=== PATIENT | female | born 1945 | race Caucasian/White ===

== ENCOUNTER → 2019-05-25 11:24 | Outpatient (CLI) | payer MEDICARE, SELFPAY ==
--- NOTE | 2019-05-25 11:29 | DI.MRI.S_ITS ---
PROCEDURE: MR LUMBAR SPINE WO CON INDICATIONS: Progressive low back pain scoliosis TECHNIQUE: Noncontrast sagittal T1 spin echo and T2 fast echo, sagittal STIR, axial T1 and T2 fast spin echo through the lumbar spine. In cases with scoliosis, additional coronal T2 fast spin echo may be performed. COMPARISON: [facility], CR, XR LUMBAR SPINE WITH FLEXION EXTENSION 5 VIEWS, 03/10/2019, 13:06. FINDINGS: Image quality: Excellent. Alignment and Curvature: There is grade I L5-S1 anterolisthesis secondary to facet hypertrophy. There is approximately 36? of convex left of lumbar spine scoliosis. Bone Marrow: Marrow is of normal overall signal. Loss of height noted in the T12 and L1 vertebral bodies compatible with compression deformities are stable compared to prior plain film radiographs. There is increased T2 signal in the marrow space of the L1 vertebral body suggesting a compression fracture is subacute. The T12 compression deformity has chronic appearance. Reactive endplate changes noted adjacent to the L1-L2, L2-L3, L3-L4, L4-L5 and L5-S1 discs. No acute vertebral body compression fractures. Spinal Cord: Conus medullaris terminates at the T12-L1 disc level. Visualized cord demonstrates normal signal and size. Paraspinous Soft Tissues: No paravertebral masses. L1-L2: Loss of disc signal. Mild, diffuse disc bulge. Mild bilateral facet hypertrophy. No central stenosis. Mild bilateral neural foraminal narrowing. No neural compression. L2-L3: Loss of disc signal. Mild, diffuse disc bulge. Mild bilateral facet hypertrophy. Mild ligamentum flavum hypertrophy. Mild to moderate narrowing of the central canal. Mild to moderate bilateral neural foraminal narrowing. No neural compression. L3-L4: Loss of disc signal and height. Mild, diffuse disc bulge. Moderate bilateral facet hypertrophy. Moderate narrowing of the central canal. Moderate right and [id number] left neural foraminal narrowing. No neural compression. L4-L5: Loss of disc signal. Mild, diffuse disc bulge. Moderate bilateral facet hypertrophy. Moderate narrowing of the central canal. Mild right and [id number]-[id number]-wmfyzu left neural foraminal narrowing. No neural compression. L5-S1: Loss of disc signal and height. Mild, diffuse disc bulge with severe bilateral facet hypertrophy. Moderate narrowing of the central canal. Moderate to severe bilateral neural foraminal narrowing. No neural compression. Fissures are noted in the posterior annulus. IMPRESSION: 1. Convex left of lumbar spine scoliosis. 2. Grade I L5-S1 degenerative spondylolisthesis. 3. Multilevel degenerative disc disease. 4. Multilevel facet arthropathy. 5. Moderate L3-L4, L4-L5 and L5-S1 central canal narrowing. Mild to moderate L2-L3 central canal narrowing. 6. Moderate to severe bilateral L5-S1 neural foraminal narrowing. Mild right and jcjjcdlw-[id number] left L4-L5 neural foraminal narrowing. Moderate right and mild to moderate left L3-L4 neural foraminal narrowing. Mild to moderate bilateral L1-L2 neural foraminal narrowing. Mild bilateral L1-L2 neural foraminal narrowing. 7. No neural compression. 8. L5-S1 disc annulus fissures. Dictated by: Shirley Pantoja MD, PhD on 05/25/2019 at 16:39 Approved by: Shirley Pantoja MD, PhD on 05/25/2019 at 16:51
== END ==
PROVIDERS: PCP Family Medicine; Referring Provider Physical Medicine & Rehabilitation; Visit Provider Physical Medicine & Rehabilitation
DX: M54.5 Low back pain (principal); M47.817 Spondylosis without myelopathy or radiculopathy, lumbosacral region; M47.816 Spondylosis without myelopathy or radiculopathy, lumbar region; M43.17 Spondylolisthesis, lumbosacral region; M51.36 Other intervertebral disc degeneration, lumbar region; M51.37 Other intervertebral disc degeneration, lumbosacral region; M48.061 Spinal stenosis, lumbar region without neurogenic claudication; M48.07 Spinal stenosis, lumbosacral region; M41.86 Other forms of scoliosis, lumbar region
CPT/HCPCS: 72148

== ENCOUNTER 2019-06-02 09:40 | Outpatient (CLI) | payer MEDICARE, SELFPAY ==
[2019-06-02] VITALS (9 sets, daily range): BP systolic 88–125; BP diastolic 47–74; PULSE 70–82; RESP 14–16; O2SAT 95–99
--- NOTE | 2019-06-02 09:42 | DI.RAD.S_ITS ---
PROCEDURE: PAIN L/SI FACET INJ/BLK 1STL INDICATIONS: Progressive low back pain scoliosis FINDINGS: Fluoroscopic spot filming was performed to verify placement of spinal needles at the L3-L4, L4-L5, L5-S1 level(s), as labeled on the films. Appropriate location(s) of the needle tip(s) was confirmed by injection of iodinated contrast. Dictated by: Rowdy Vela M.D. on 06/02/2019 at 12:16 Approved by: Rowdy Vela M.D. on 06/02/2019 at 13:12
[2019-06-02] MEDS: MIDAZOLAM 5 MG/5 ML VIAL IV (10:17)
[2019-06-02] MEDS: fentaNYL 100 MCG/2 ML INJ 50 MCG IV (10:22)
[2019-06-02] MEDS: IOPAMIDOL 15 ML VIAL 3 ML INJ (10:26)
[2019-06-02] MEDS: BETAMETHASONE 30 MG/5 ML MDV 12 MG INJ (10:26)
[2019-06-02] MEDS: BUPIVACAINE 0.5% (PF) VIAL 2 ML INJ (10:27)
--- NOTE | 2019-06-02 10:28 | PC.NURSE ---
DR VALERIO AWARE OF DECREASED BP AFTER ADMIN OF FENTANYL. ASSISTING PT OFF TABLE AND TRANSPORTING TO POST PROC AREA IN STABLE CONDITION. PASSING CARE OF PT OFF TO DESHAUN Rosenberg RN.
--- NOTE | 2019-06-02 10:37 | P.PCN_ITS ---
Procedures Date/Time Date of procedure: 06/02/19 Time of procedure: 10:37 General Procedure description: PREOP DIAGNOSIS 1. FACET ARTHROPATHY, 2. AXIAL LBP, 3. MULTILEVEL DDD, POST OP DIAGNOSIS 1. FACET ARTHROPATHY, 2. AXIAL LBP, 3. MULTILEVEL DDD, PROCEDURES 1. FLUORSCOPICALLY GUIDED CONTRAST CONTROLLED FACET JOINT INJECTIONS LEFT L4/5, L5/S1 SURGEON: Kiran Alan, DO INDICATIONS Eliane is referred by Dr. Ott for treatment of Axial LBP FINDINGS Multilevel Facet Arthropathy with Clinically significant axial LBP DESCRIPTION OF PROCEDURE Fluoroscopically guided, contrast-controlled left L3/4, L4/5, L5/S1 facet joint injections. Following review of allergy and review of potential side effects and complications, including, but not necessarily limited to, infection, allergic reaction, local tissue breakdown, stroke, temporary or permanent nerve injury, paralysis, and possible , the patient indicated that the patient understood and agreed to proceed. An informed consent document was signed by the patient, witnessed by a nurse, and placed in the patient's chart. Additionally, other treatment options including medications, modalities, and physical therapy were reviewed with the patient. After review of previous anaesthesic history and IV conscious sedation the patient was deemed safe to proceed with todays procedure with IV conscious sedation as ASA class II designation. Safety time-out was performed to confirm patient ID, procedure to be performed and site of procedure. IV sedation was accomplished with a combination of 2mg of Versed and 50mcg of Fentanylwas administered by the RN after DO order, titrated to patient comfort during the course of the procedure while the patient remained responsive to all verbal commands. In the prone position, following sterile prep and drape of the lumbar region, the posterior aspect of the left L3/4, L4/5, L5/S1 facet joints were identified fluoroscopically. The skin was anesthetized via a 25-gauge 1.5-inch needle with 1% lidocaine solution into the corresponding facet joints. At this point, a 22- gauge 3.5-inch spinal needle was atraumatically introduced and advanced under fluoroscopic guidance into the corresponding facet joints. Following negative aspiration, injections of approximately 0.2-cc of Isovue 200 confirmed interarticular placement without vascular uptake. Radiological data, including multiple fluoroscopic views of the lumbosacral spine, reveal a spinal needle at the left L3/4, L4/5, L5/S1 facet joints. Subsequent views show flow of contrast material both superiorly and inferiorly within the joint space without vascular or intrathecal uptake. At this point, a total of 0.5 cc including a mixture of 0.25cc Marcaine and 0.25cc betamethasone was injected without complication into each of the corresponding facet joints. The procedure tolerated the procedure well without signs or symptoms of complications prior to transfer to the recovery area continued monitoring without incident. The patient was then transferred to the recovery area where they were observed for an appropriate period of time after the injection. The patient reported a VAS score of 7 prior to the procedure and a post-procedure VAS of 0. Total Fluoroscopy Time: 7seconds Total Conscious Sedation Time: 24min POST OP INSTRUCTIONS The patient was provided a Pain Log to continue to record their response to the target-specific procedure prior to follow-up visit with their referring physician. Additionally, specific post-injection care instructions and a contact number to our office were provided if concerns arise regarding possible complications associated with the procedure are suspected. Kiran Alan DO Complications: none
--- NOTE | 2019-06-02 11:14 | PC.NURSE ---
patient returned from procedure in w/c accompanied by kristina Judge assist to chair, pt. denies pain, given water and cookies. patient confused about meds and forgetful
== END 2019-06-02 11:05 | disposition home or self-care (01) ==
PROVIDERS: PCP Family Medicine; Referring Provider Physical Medicine & Rehabilitation; Visit Provider Physical Medicine & Rehabilitation
DX: M47.817 Spondylosis without myelopathy or radiculopathy, lumbosacral region (principal); M47.816 Spondylosis without myelopathy or radiculopathy, lumbar region; M54.5 Low back pain; M51.36 Other intervertebral disc degeneration, lumbar region; M51.37 Other intervertebral disc degeneration, lumbosacral region
CPT/HCPCS: 64493; 64494; 64495; 99152; J0702; J2250; J3010

== ENCOUNTER → 2019-09-05 11:42 | Outpatient (CLI) | payer MEDICARE, SELFPAY ==
[2019-09-08 16:14] LABS: COVID19 Sendout Not Detected (Not Detected)
== END ==
PROVIDERS: PCP Family Medicine; Visit Provider Registered Nurse
DX: Z01.812 Encounter for preprocedural laboratory examination (principal)
CPT/HCPCS: 87635

== ENCOUNTER 2019-09-08 14:28 | Outpatient (CLI) | payer MEDICARE, SELFPAY ==
[2019-09-08] VITALS (9 sets, daily range): BP systolic 102–157; BP diastolic 52–104; PULSE 62–80; RESP 15–16; TEMP 36.6; O2SAT 97–100
--- NOTE | 2019-09-08 14:29 | DI.RAD.S_ITS ---
PROCEDURE: PAIN L/SI FACET INJ/BLK 1STL INDICATIONS: SPONDYLOSIS FINDINGS: Fluoroscopic spot filming was performed to verify placement of spinal needles at the left medial branch the regions of L3 through S1 level(s), as labeled on the films. Appropriate location(s) of the needle tip(s) was confirmed by injection of iodinated contrast. IMPRESSION: Successful needle tip localization for 4 level unilateral left-sided L3-S1 medial branch block procedures. Dictated by: Zacarias Welch M.D. on 09/08/2019 at 17:05 Approved by: Zacarias Welch M.D. on 09/08/2019 at 17:06
[2019-09-08] MEDS: MIDAZOLAM 5 MG/5 ML VIAL IV (15:00)
[2019-09-08] MEDS: BUPIVACAINE 0.5% (PF) VIAL 5 ML INJ (15:00)
[2019-09-08] MEDS: fentaNYL 100 MCG/2 ML INJ 50 MCG IV (15:00)
[2019-09-08] MEDS: IOPAMIDOL 15 ML VIAL 3 ML INJ (15:00)
--- NOTE | 2019-09-08 15:21 | P.PCN_ITS ---
Procedures Date/Time Date of procedure: 09/08/19 Time of procedure: 15:21 General Procedure description: POST OP DIAGNOSIS 1. FACET ARTHROPATHY PROCEDURES 1. Left L4, L5 and S1 MB BLOCKS PHYSICIAN: DO ADELFO Hairston Eliane is referred by for treatment of Left Axial LBP. DESCRIPTION OF PROCEDURE Fluoroscopically guided, contrast-controlled left L3, L4, L5 and S1 medial branch blocks with 0.5cc of 0.5% Marcaine. Following review of allergy and review of potential side effects and complications, including, but not necessarily limited to, infection, allergic reaction, local tissue breakdown, nerve injury, paralysis, stroke and possible , the patient indicated that the patient understood and agreed to proceed. An informed consent document was signed by the patient, witnessed by a nurse, and placed in the patient's chart. After review of previous anaesthesic history and IV conscious sedation the patient was deemed safe to proceed with todays procedure with IV conscious sedation as ASA class II designation. Safety time-out was performed to confirm patient ID, procedure to be performed and site of procedure. IV sedation was accomplished with a combination of 2mg of Versed and 50mcg of Fentanyl was administered by the RN after DO order, titrated to patient comfort during the course of the procedure while the patient remained responsive to all verbal commands. In the prone position, following sterile prep and drape of the lumbar region, the left L3, L4, L5 and S1 anatomical location of the medial branch of the dorsal ramus was identified fluoroscopically. Subsequently an anesthetic skin wheal using 1% lidocaine solution was initiated at each of the anatomical spots. Subsequently then a 22-gauge 3.5-inch spinal needle was atraumatically introduced and advanced under fluoroscopic guidance at each of the corresponding sites at the left L3, L4, L5 and S1 MB. After negative aspiration, 0.2cc of Isovue 200 was injected, confirming placement without vascular or intrathecal uptake. Subsequently then 0.5cc of 0.5% Marcaine solution was injected at each of the corresponding sites at the left L3, L4, L5 and S1 medial branch locations. The patient tolerated the procedure well without signs or symptoms of complications. The patient tolerated the procedure well without signs or symptoms of complications prior to transfer to the recovery area continued monitoring without incident. Post-procedure, the patient was monitored initiating provocative activities to measure the amount of relief from block of the facetogenic pain. The patient reported a VAS of 7 prior to the procedure and a post-procedure VAS of 1. It has been a pleasure to assist in the diagnostic and therapeutic care of your patient. Total Fluoroscopy Time: 8seconds Total Conscious Sedation Time: 24min POST OP INSTRUCTIONS The patient was provided with a Pain Log to complete over the next several hours and subsequent days prior to the patient's follow up with the ordering physician. If the patient has take away attendant relief to the solution applied, then they may be a candidate for medial branch rhizotomy. The patient is aware, was provided, once again, with a Pain Log and will follow up with the referring physician for review and clinical correlation Kiran Alan DO Complications: none
--- NOTE | 2019-09-08 15:23 | PC.NURSE ---
ACCEPTED CARE OF PT IN POST PROC AREA IN STABLE CONDITION.
--- NOTE | 2019-09-08 15:37 | PC.NURSE ---
Pt tolerated procedure well, Assisted off table to , transferred back to pre proc room, monitoring resumed by CADY Judge
[2019-09-08] MEDS: LIDOCAINE 1% 20 ML 10 ML INJ (15:42)
== END 2019-09-08 16:02 | disposition home or self-care (01) ==
LOC: RAD 14:29
PROVIDERS: PCP Family Medicine; Referring Provider Physical Medicine & Rehabilitation; Visit Provider Physical Medicine & Rehabilitation
DX: M47.817 Spondylosis without myelopathy or radiculopathy, lumbosacral region (principal); M47.816 Spondylosis without myelopathy or radiculopathy, lumbar region; M54.5 Low back pain
CPT/HCPCS: 64493; 64494; 64495; 99152; J2250; J3010

== ENCOUNTER → 2019-11-28 10:39 | Outpatient (CLI) | payer MEDICARE, SELFPAY ==
[2019-11-29 19:57] LABS: COVID19 Sendout Not Detected (Not Detect)
== END ==
PROVIDERS: PCP Family Medicine; Visit Provider Physician Assistant
DX: Z11.59 Encounter for screening for other viral diseases (principal)
CPT/HCPCS: 87635

== ENCOUNTER 2019-12-01 10:45 | Outpatient (CLI) | payer MEDICARE, SELFPAY ==
[2019-12-01] VITALS (13 sets, daily range): BP systolic 117–146; BP diastolic 79–95; PULSE 64–79; RESP 12–28; TEMP 36.1; O2SAT 95–100
--- NOTE | 2019-12-01 10:49 | DI.RAD.S_ITS ---
PROCEDURE: PAIN L/S MED/LAT N RFA INDICATIONS: SPONDYLOSIS COMPARISON: None. FINDINGS: Fluoroscopic spot filming was performed to verify placement of spinal needles at the left L3, L4, L5 and S1 level(s), as labeled on the films. Appropriate location(s) of the needle tip(s) was confirmed by injection of iodinated contrast. IMPRESSION: Successful 4 level needle tip localizations from L3 through S1 for medial branch block procedures (4 total) on the left. Dictated by: Zacarias Welch M.D. on 12/01/2019 at 13:33 Approved by: Zacarias Welch M.D. on 12/01/2019 at 13:34
[2019-12-01] MEDS: fentaNYL 100 MCG/2 ML INJ 50 MCG IV (11:45)
[2019-12-01] MEDS: MIDAZOLAM 5 MG/5 ML VIAL IV (12:00)
[2019-12-01] MEDS: BUPIVACAINE 0.5% (PF) VIAL 5 ML INJ (12:11)
[2019-12-01] MEDS: LIDOCAINE 1% 20 ML 10 ML INJ (12:11)
--- NOTE | 2019-12-01 12:31 | P.PCN_ITS ---
Date/Time/Diagnoses Date of procedure: 12/01/19 Time of procedure: 12:31 Pre-procedure diagnosis: 1. RECALCITRANT FACET ARTHROPATHY Post-procedure diagnosis: same Procedure Notes Procedure: 1. LEFT L4 AND L5 MEDIAL BRANCH RADIOFREQUENCY NEUROTOMY AND LEFT S1 DORSAL RAMUS RADIOFREQUENCY NEUROTOMY, Indications: Eliane is referred by Dr. Ott for treatment of facet arthropathy. Physician: Kiran Alan Total Fluoroscopy time (seconds): 12 Total sedation minutes: 36 Complications: none Procedure in detail & Post-procedure care: DESCRIPTION OF PROCEDURE Left L3, L4 and L5 medial branch radiofrequency neurotomy and left S1 dorsal ramus branch radiofrequency neurotomy under fluoroscopy with conscious sedation. The patient is well known to this clinic having undergone previous facet injections with good but temporary relief. The patient has experienced appropriate, concordant relief with previous facet and median branch blocks but the patient's pain has been recalcitrant to further conservative measures. Therefore, based upon the patient's relief and persistent symptoms, the patient is considered an appropriate candidate for facet rhizotomy. All of the patient's questions regarding the risks versus benefits of the procedure, including, but not limited to, bleeding, infection, temporary as well as lasting nerve injury, paralysis, stroke, and , as well treatment alternatives were answered to satisfaction. After obtaining informed consent, denial of pertinent drug allergies, as well as being made aware of the potential risks of bleeding, infection, spinal cord trauma, paralysis, temporary and permanent nerve damage, seizure, stroke, and possible , the patient was brought to the fluoroscopy suite and positioned prone on the fluoroscopy table. The lumbar region was prepped with chlorhexadine and covered with a fenestrated drape in the usual sterile fashion. Appropriate monitors applied including pulse oximeter, pulse, and blood pressure for regular monitoring throughout the procedure. IV sedation was accomplished with a combination of 3mg of Versed and 50mcg of Fentanyl titrated to patient comfort during the course of the procedure while the patient remained responsive to all verbal commands. After local infiltration using 1% lidocaine, under fluoroscopic guidance, a 10- cm RF insulated needle with a 10-mm active tip was positioned parallel to the junction of the left sacral ala and the superior articulating process where the S1 dorsal ramus resides. Needle placement was confirmed with sensory stimulation at 50 Hz, with motor stimulation of .5v on the left which produced local stimulation without radicular component. The stimulation was then increased to 2v with, once again, only local multifidus stimulation without radicular component. This was then followed by two discreet lesions performed at 80 degrees Celsius for 90 seconds each. The needle was then removed and the identical procedure was performed along the length of the left L5 medial branch with motor stimulation at .7v on the left. The identical procedure was once again performed along the length of the left L4 medial branch with motor stimulation of .5v on the left. The identical procedure was once again performed along the length of the left L3 medial branch with motor stimulation of .6v on the left. The patient tolerated the procedure well without signs or symptoms of complications prior to transfer to the recovery area continued monitoring without incident. The patient was then transferred to the recovery area where they were observed for an appropriate period of time after the injection. The patient was then transferred to the recovery area where they were observed for an appropriate period of time after the injection. The patient reported a VAS score of 9 prior to the procedure and a post- procedure VAS of 0. POST OP INSTRUCTIONS The patient was provided a Pain Log to continue to record the patient's response to the target-specific procedure prior to the patient's follow-up visit with the referring physician. Additionally, specific post-injection care instructions and a contact number to our office were provided if concerns arise regarding possible complications associated with the procedure are suspected.
--- NOTE | 2019-12-01 15:40 | PC.NURSE ---
Fentanyl and versed given by this RN all other meds scanned given by Dr Alan. Patient was stable and transferred to [facility].
== END 2019-12-01 12:52 | disposition home or self-care (01) ==
LOC: RAD 10:48
PROVIDERS: PCP Family Medicine; Referring Provider Physical Medicine & Rehabilitation; Visit Provider Physical Medicine & Rehabilitation
DX: M47.817 Spondylosis without myelopathy or radiculopathy, lumbosacral region (principal); M47.816 Spondylosis without myelopathy or radiculopathy, lumbar region
CPT/HCPCS: 64635; 64636; 99152; 99153; J2250; J3010